=== PATIENT | female | born 1975 | race Asian ===

== ENCOUNTER 2018-05-10 23:46 | Emergency (ER) | payer BC ==
[~2018-05-10] VITALS: Ht 185.4 cm; Wt 156.4 kg
--- NOTE | 2018-05-11 00:15 | NUR ---
Viri engel in ED - 05/11/18 at 0019 by PRESTON pt moved to trauma 3, report given to ANURADHA henriquez
--- NOTE | 2018-05-11 00:19 | NUR ---
pt presents to ed with c/o headache since yesterday, sternal cp 2/10 since this am. neuro intact. pt denies vision/hearing changes. all monitors in place. PIV placed. pt to CT. report to ANURADHA Perkins. Addendum: 05/11/18 at 0021 by PRESTON pt presents to ed with c/o headache since yesterday, sternal cp 2/10 since this am. pt only mentioned cp to MD once back in room 15. neuro intact. pt denies vision/hearing changes. all monitors in place. PIV placed. pt to CT. report to ANURADHA Perkins.
[2018-05-11] MEDS ORDERED: ENALAPRILAT 1.25 MG/ML, 2ML IV ONE (00:30)
[2018-05-11] MEDS ORDERED: SODIUM CHLORIDE FLUSH 10ML SYR IVF ONE (00:30)
[2018-05-11] MEDS ORDERED: LABETALOL 5MG/ML, 20ML IVPush ONE ×2 (00:30→01:30)
[2018-05-11] MEDS ORDERED: NITROGLYCERIN OINT 2%, 1GM TP ONE ×2 (00:30→00:40)
[2018-05-11 00:38] LABS: ALANINE AMINOTRANSFERASE 24 U/L (12-78); ALBUMIN 3.5 g/dL (3.4-5.0); ANION GAP 5 mmol/L (5-15); CALCIUM 8.7 mg/dL (8.5-10.1); CHLORIDE 104 mmol/L (98-107); CREATININE 1.04 mg/dL (0.55-1.02)
[2018-05-11] MEDS ORDERED: ENALAPRILAT 1.25 MG/ML, 2ML ONE (00:40)
[2018-05-11 00:42] LABS: ALKALINE PHOSPHATASE 118 U/L (45-117); BILIRUBIN,TOTAL 0.8 mg/dL (0.2-1.0); TROPONIN I 0.031 ng/mL (0.000-0.045)
[2018-05-11 00:56] LABS: BASOPHILS # (AUTO) 0.03 x10^3/uL (0-0.1); BASOPHILS % (AUTO) 0 % (0-1); EOSINOPHILS # (AUTO) 0.18 x10^3/uL (0-0.4); EOSINOPHILS % (AUTO) 2 % (1-7); LYMPHOCYTES # (AUTO) 1.65 x10^3/uL (1-3.4); LYMPHOCYTES % (AUTO) 16 % (22-44); MD NO; MEAN CORPUSCULAR VOLUME 88.4 fL (80-100); MEAN PLATELET VOLUME 8.5 fL (7.4-10.4); MONOCYTES # (AUTO) 0.86 x10^3/uL (0.2-0.8); MONOCYTES % (AUTO) 8 % (2-9); NEUTROPHILS # (AUTO) 7.82 x10^3/uL (1.8-6.8); NEUTROPHILS % (AUTO) 74 % (42-75); PLATELET COUNT 358 x10^3/uL (130-400); RED CELL DISTRIBUTION WIDTH 13.2 % (9.6-15.2)
--- NOTE | 2018-05-11 00:56 | NUR ---
PT MEDICATED ORDERED. PT BP IMPROVED AT 170/100. PT REMAINS IN A POSITION OF COMFORT. FAMILY AT BEDSIDE.
[2018-05-11] MEDS ORDERED: OXYcodone/APAP 5/325MG TABLET PO ONE (01:00)
[2018-05-11] MEDS ORDERED: INDOMETHACIN 50 MG CAPSULE PO ONE (01:00)
[2018-05-11] MEDS ORDERED: COLCHICINE 0.6 MG TABLET PO ONE (01:00)
[2018-05-11] MEDS ORDERED: INDOMETHACIN 50 MG CAPSULE ONE (01:19)
[2018-05-11] MEDS ORDERED: OXYcodone/APAP 5/325MG TABLET ONE (01:20)
[2018-05-11] MEDS ORDERED: COLCHICINE 0.6 MG TABLET ONE (01:20)
--- NOTE | 2018-05-11 01:24 | NUR ---
PT MEDICATED FOR PAIN AND MORE BP MEDS ORDERED. PT REMAINS WITH FAMILY AT BEDSIDE
[2018-05-11 02:20] VITALS: BP 157/93
== END 2018-05-11 02:22 | disposition home or self-care (01) ==
LOC: ED 05-11 01:01
DX: M10.072 Idiopathic gout, left ankle and foot (principal); R51 Headache; I10 Essential (primary) hypertension; E11.9 Type 2 diabetes mellitus without complications
CPT/HCPCS: 36415; 70450; 80053; 84484; 84550; 85025; 93005; 96374; 96375; 96376